=== PATIENT | female | born 1950 | race Caucasian/White ===

== ENCOUNTER 2023-04-20 08:03 | Emergency (ER) | payer OTHER ==
[~2023-04-20] VITALS: Ht 157.5 cm; Wt 56.7 kg
[~2023-04-20 08:03] MED LIST: ALBU0.0939 INH; DULO60EC1 PO; FLUT1DSK2 INH; OMEP20EC4 PO; [UNRECOGNIZED DRUG - CODE] PO
--- NOTE | 2023-04-20 08:03 | NUR ---
BIBA/ALS TO BED 2
--- NOTE | 2023-04-20 08:11 | NUR ---
MD SONG AT BEDSIDE FOR EVALUATION
--- NOTE | 2023-04-20 08:12 | NUR ---
72YO FEMALE PT BIBA [facility] C/O INCREASED GEN WEAK , NAUSEA AND DIZZINESS X1HR. REPORTS INITIAL ONSET [id number] , PER FACILITY PT W/ RECENT FALL. PT GIVEN 4MG ZOFRAN ON ROUTE W/ RELIEF. DENIES V/D, FEVER, CHILLS OR SOB. BRUISING NOTED UNDER L BREAST, PT REPORTS PACEMAKER BATTERY REPLACEMENT ON 03/31. PT AAOX4, HOB POSITIONED PER COMFORT. ON WATERPROOF BAG SEWER. BED AT LOWEST POSITION, BED RAILS UPX2. CALL LIGHT WITHIN REACH. 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
[2023-04-20] MEDS ORDERED: NACL 0.9% 1,000 ML IV ONE (08:20)
[2023-04-20 08:26] VITALS: BP 116/75; PULSE 80; RESP 20; TEMP 98; O2SAT 99
--- NOTE | 2023-04-20 08:40 | NUR ---
purewick in place. on high continuous suction
--- NOTE | 2023-04-20 08:55 | NUR ---
xray at bedside
[2023-04-20 10:22] LABS: BASOPHILS # (AUTO) 0.1 K/uL (0.00-0.22); BASOPHILS % (AUTO) 0.7 % (0.0-2.0); EOSINOPHILS # (AUTO) 0.5 K/uL (0-0.4); EOSINOPHILS % (AUTO) 5.7 % (0.0-4.0); HEMOGLOBIN 11.3 g/dL (12.0-16.0); LYMPHOCYTES # (AUTO) 1.9 K/uL (2.5-16.5); LYMPHOCYTES % (AUTO) 23.9 % (20.5-51.1); MEAN CORPUSCULAR HEMOGLOBIN 30 pg (27-31); MEAN CORPUSCULAR HGB CONC 33 g/dL (33-37); MEAN CORPUSCULAR VOLUME 89.1 fL (80-94); NEUTROPHILS # (AUTO) 4.7 K/uL (1.8-7.7); NEUTROPHILS % (AUTO) 57.7 % (42.2-75.2); PLATELET COUNT (AUTO) 140 K/uL (140-450); RED BLOOD CELL COUNT(AUTO) 3.82 MIL/uL (4.20-5.40); RED CELL DISTRIBUTION WIDTH 13.7 % (11.6-13.7); WHITE BLOOD COUNT (AUTO) 8.2 K/uL (4.8-10.8)
[2023-04-20 10:34] LABS: ALBUMIN 2.8 g/dL (3.4-5.0); ANION GAP 9.1 (8-16); ASPARTATE AMINOTRANSFERASE 31 U/L (15-37); CARBON DIOXIDE 30.1 mmol/L (21-32); CHLORIDE 110 mmol/L (98-107); CREATININE 0.7 mg/dL (0.6-1.3); GLUCOSE 85 mg/dL (74-106); LIPASE 36 U/L (73-393); POTASSIUM 4.2 mmol/L (3.5-5.1); SODIUM SERUM 145 mmol/L (136-145); TOTAL BILIRUBIN 0.4 mg/dL (0.0-1.0); UREA NITROGEN, BLOOD 8 mg/dL (7-18)
[2023-04-20 10:41] VITALS: O2SAT 99
[2023-04-20 11:20] LABS: APPEARANCE,URINE CLEAR (CLEAR); BILIRUBIN,URINE NEGATIVE (NEGATIVE); BLOOD, URINE NEGATIVE (NEGATIVE); COLOR,URINE YELLOW (YELLOW); LEUKOCYTE ESTERASE ,URINE NEGATIVE (NEGATIVE); NITRITE, URINE NEGATIVE (NEGATIVE); PH,URINE 7.5 (5.0-9.0); UGLUCOSE NEGATIVE (NEGATIVE)
[2023-04-20] MEDS ORDERED: ONDA-188 SL (12:22)
--- NOTE | 2023-04-20 12:34 | NUR ---
pt ambulating w/ assist. road test completed
[2023-04-20 12:35] VITALS: O2SAT 99
--- NOTE | 2023-04-20 13:33 | NUR ---
Kavita cespedes in ED - 04/20/23 at 1620 by PHSEP DAUGHTER NOTIFIED OF PT D/C. 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
--- NOTE | 2023-04-20 13:51 | NUR ---
IV removed, catheter intact and site benign. Applied folded 4x4 gauze and tape to stop bleeding.
[2023-04-20 15:20] VITALS: O2SAT 99
--- NOTE | 2023-04-20 16:20 | NUR ---
DAUGHTER NOTIFIED OF PT D/C. 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
[2023-04-20 17:05] VITALS: BP 138/63; PULSE 80; RESP 20; TEMP 98; O2SAT 99
--- NOTE | 2023-04-20 17:05 | NUR ---
Patient discharged with v/s stable. Written and verbal after care instructions FOR N/V, DEHYDRATION given and explained. Patient alert, oriented and verbalized understanding of instructions. Ambulatory USING [facility] . All questions addressed prior to discharge. ID band removed. Patient advised to follow up with PMD. Rx Ayan CRUZ given. Opportunity to ask questions provided and answered. Addendum: 04/20/23 at 1706 by CATALINA PRABHU MORENO
== END 2023-04-20 17:05 | disposition home or self-care (01) ==
LOC: MED 08:03
DX: R53.1 Weakness (principal); E86.0 Dehydration; R11.0 Nausea; J45.909 Unspecified asthma, uncomplicated; K21.9 Gastro-esophageal reflux disease without esophagitis; I11.0 Hypertensive heart disease with heart failure; E11.9 Type 2 diabetes mellitus without complications; Z86.73 Personal history of transient ischemic attack (TIA), and cerebral infarction without residual deficits; Z79.4 Long term (current) use of insulin; Z79.899 Other long term (current) drug therapy
CPT/HCPCS: 36415; 71045; 80053; 81003; 83690; 84484; 85025; 93005; 96360; 99285; J7030